=== PATIENT | female | born 1950 | race Caucasian/White ===

== ENCOUNTER 2017-06-09 09:48 | Inpatient (IN) | payer OTHER ==
[~2017-06-09] VITALS: Ht 172.7 cm; Wt 91.6 kg
--- NOTE | 2017-06-09 09:48 | NUR ---
0944--Patient was BIBA and taken to bed 06 via gurney per EMS.
[2017-06-09 09:50] VITALS: BP 103/90
--- NOTE | 2017-06-09 09:55 | NUR ---
66 YO FEMALE BIB EMS FROM HOME FOR SUDDEN ONSET OF LEEFT HIP PAIN, FELL LAST NIGHT HS HX OF PREVIOUS HIP REPLACEMENT. .DENIES N/V/D; SKIN IS PINK/WARM/DRY; AAOX4 WITH EVEN AND STEADY GAIT; LUNGS CLEAR BL; HR EVEN AND REGULAR; PT DENIES ANY FEVER, CP, SOB, OR COUGH AT THIS TIME; PATIENT STATES PAIN OF 9/10 AT THIS TIME; VSS; PATIENT POSITIONED FOR COMFORT; HOB ELEVATED; BEDRAILS UP X2; BED DOWN. ER MD MADE AWARE OF PT STATUS.
[2017-06-09] MEDS ORDERED: QUET25TA PO (09:58)
[2017-06-09] MEDS ORDERED: METH500T14 PO (09:58)
[2017-06-09] MEDS ORDERED: MELO7.5T11 PO (09:58)
[2017-06-09] MEDS ORDERED: ACET-2869 PO (09:58)
[2017-06-09] MEDS ORDERED: FLUO10CA21 PO (09:58)
[2017-06-09] MEDS ORDERED: LISI-420 PO (09:58)
[2017-06-09] MEDS ORDERED: GABA400C PO (09:58)
--- NOTE | 2017-06-09 10:03 | NUR ---
Marcial nunes in [facility] - 06/09/17 at [address] Gonzalez evaluating patient at bedside.
[2017-06-09 10:10] LABS: BASOPHILS # (AUTO) 0.3 K/uL (0.00-0.22); BASOPHILS % (AUTO) 3.1 % (0.0-2.0); EOSINOPHILS # (AUTO) 0.1 K/uL (0-0.4); EOSINOPHILS % (AUTO) 0.8 % (0.0-4.0); HEMATOCRIT 38.7 % (36-48); HEMOGLOBIN 12.8 g/dL (12.0-16.0); LYMPHOCYTES # (AUTO) 1.5 K/uL (2.5-16.5); LYMPHOCYTES % (AUTO) 14.3 % (20.5-51.1); MEAN CORPUSCULAR HEMOGLOBIN 29 pg (27-31); MEAN CORPUSCULAR HGB CONC 33 g/dL (33-37); MEAN CORPUSCULAR VOLUME 87 fL (80-94); MONOCYTES % (AUTO) 10.1 % (1.7-9.3); NEUTROPHILS # (AUTO) 7.3 K/uL (1.8-7.7); NEUTROPHILS % (AUTO) 71.7 % (42.2-75.2); PLATELET COUNT (AUTO) 399 K/uL (140-450); RED BLOOD CELL COUNT(AUTO) 4.45 MIL/uL (4.20-5.40); RED CELL DISTRIBUTION WIDTH 15.5 % (11.6-13.7); WHITE BLOOD COUNT (AUTO) 10.2 K/uL (4.8-10.8)
[2017-06-09] MEDS ORDERED: HYDROmorphone 1 MG/ML AMP IVP ONE ×2 (10:10→12:00)
[2017-06-09 10:21] LABS: ANION GAP 15.3 (8-16); CARBON DIOXIDE 25.4 mmol/L (21-32); CREATININE 0.8 mg/dL (0.6-1.3); POTASSIUM 3.7 mmol/L (3.5-5.1)
--- NOTE | 2017-06-09 10:23 | NUR ---
Patient taken to XRAY via [facility].
[2017-06-09 10:24] LABS: PROTHROMBIN TIME 10.2 secs (10.8-13.4)
[2017-06-09 10:26] LABS: ALBUMIN 3.8 g/dL (3.4-5.0); TOTAL BILIRUBIN 1.1 mg/dL (0.0-1.0)
--- NOTE | 2017-06-09 10:47 | NUR ---
Patient back from XRAY via [facility].
[2017-06-09] MEDS ORDERED: ONDANSETRON 4 MG/2 ML VIAL IVP PRN (12:05)
--- NOTE | 2017-06-09 12:33 | NUR ---
Patient will be admitted to care of Dr Mccoy. Admited to m/s. Will go to room 123b. Belongings list completed. Report to JIGNESH Ghotra.
--- NOTE | 2017-06-09 12:41 | NUR ---
Note naeemone in EDM - 06/09/17 at 1243 by JULIANA Patient discharged with v/s stable. Written and verbal after care instructions given and explained. Patient alert, oriented and verbalized understanding of instructions. Ambulatory with to car. All questions addressed prior to discharge. ID band removed. Patient advised to follow up with PMD. Rx of levaquin given. Patient educated on indication of medication including possible reaction and side effects. Opportunity to ask questions provided and answered.
[2017-06-09 13:00] VITALS: BP 117/73
[2017-06-09] MEDS: METHOCARBAMOL 500 MG TAB PO SCH ×2 (13:00→16:47)
--- NOTE | 2017-06-09 13:00 | NUR ---
RECEIVED PT FROM ER, ASSISTED BY ER NURSE PER NELDA. AWAKE. ALERT ORIENTEDX4. NO SOB NOTED. COMPLAINS ON PAIN ON LEFT HIP ON MOVEMENTS. PAIN MED DILAUDID JUST GIVEN AT ER 30 MINS AGO. POSITIVE BOWEL SOUNDS NOTED ON FOUR QUADRANTS. SKIN INTACT. SCAR NOTED ON LEFT HIP. EXTERNAL ROTATION AND SHORTENING TO LOWER LEG NOTED. PT ON BEDREST RIGHT NOW BUT HELPS WITH REPOSITIONING. SAFETY PRECAUTION IN PLACE. CALL LIGHT WITHIN REACH. PT ON FALL PRECAUTION.
[2017-06-09] MEDS: DEXT 5% /NACL 0.9% 1,000 ML IV SCH (13:17)
--- NOTE | 2017-06-09 14:02 | NUR ---
PAGED JAZLYN OLIVA, REGARDING DIET OF PT. AWAITING CALL BACK.
--- NOTE | 2017-06-09 14:04 | NUR ---
JONNATHAN FROM [facility] CALLED AND REQUESTED TO FAX PT'S FACE SHEET AND ED REPORT TO [phone]. INFORMATION SENT REQUESTED BY INSURANCE.
--- NOTE | 2017-06-09 14:55 | NUR ---
PHOTO TAKEN FOR LEFT HIP SCAR. DR. REYES CALLED BACK CLARIFIED ORDER FOR DIET. AND WITH NEW ORDER FOR RENDON CATHETER INSERTION. ORDERS MADE TORB AND CARRIED OUT.
[2017-06-09] MEDS: HYDROmorphone PFS 2 MG/ML SYR IVP PRN ×2 (15:06→21:44)
[2017-06-09 16:00] VITALS: BP 100/61
--- NOTE | 2017-06-09 17:24 | NUR ---
OFFERED PT ICE PACK FOR HER LEFT HIP. PT AGREES VERBALIZED THAT IT HELPS HER WITH HER PAIN. PAIN DOWN TO TOLERABLE LEVEL, PER PT REPORT SHE JUST FEELS PAIN ON HER LEFT HIP WHEN MOVING/ REPOSITIONING. PT IN BED. COMFORTABLE AT THIS TIME.
[2017-06-09] MEDS: HYDROmorphone 1 MG/ML AMP IVP PRN (18:31)
--- NOTE | 2017-06-09 19:41 | NUR ---
PT KEPT CLEAN, DRY AND COMFORTABLE, NEEDS ATTENDED. ENDORSED TO NEXT SHIFT ON STABLE CONDITION FOR CONTINUITY OF CARE. DENIES ANY PAIN OR DISCOMFORT AT THIS TIME. NO SOB NOTED.
--- NOTE | 2017-06-09 19:42 | NUR ---
PATIENT IS CURRENTLY AWAKE ALERT ORIENTED,PATIENT DENIES PAIN, IVF INFUSING WELL, RENDON CATHETER IN PLACED DRAINING TO GRAVITY YELLOW COLOR URINE NOTED.PATIENT CONTINUES TO BE NPO FOR NOW AND PATIENT VERBALIZES UNDERSTANDING.FALL AND SAFETY PRECAUTIONS IMPLEMENTED WILL CONTINUE TO MONITOR.
--- NOTE | 2017-06-09 19:50 | NUR ---
Patient's Plan of Care was discussed and reviewed with ENVIRONMENTAL MONITORING SPECIALIST: RJ RAMIREZ.
[2017-06-09 20:00] VITALS: BP 105/63
[2017-06-09] MEDS: HYDROcodone/APAP 5/325 MG 1 TAB TAB PO PRN (20:26)
--- NOTE | 2017-06-09 22:30 | NUR ---
PATIENT IS CURRENTLY RESTING IN BED AWAKE NEEDS MET WILL CONTINUE TO MONITOR.
[2017-06-10] VITALS: BP 94/55
--- NOTE | 2017-06-10 00:58 | NUR ---
PATIENT IS CURRENTLY RESTING IN BED IVF INFUSING WELL NO COMPLAINS OF PAIN AT THIS TIME WILL CONTINUE TO MONITOR.
[2017-06-10] MEDS: DEXT 5% /NACL 0.9% 1,000 ML IV SCH ×3 (01:18→18:05)
--- NOTE | 2017-06-10 02:22 | NUR ---
PATIENT RESTING IN BED NEEDS MET WILL CONTINUE TO MONITOR.
[2017-06-10] MEDS: HYDROmorphone 1 MG/ML AMP IVP PRN ×3 (03:00→20:10)
--- NOTE | 2017-06-10 04:30 | NUR ---
PATIENT AWAKE WATCHING TV IVF INFUSING WELL WILL CONTINUE TO MONITOR.
[2017-06-10] MEDS: HYDROcodone/APAP 5/325 MG 1 TAB TAB PO PRN ×2 (05:59→16:25)
[2017-06-10 06:24] LABS: BASOPHILS # (AUTO) 0.1 K/uL (0.00-0.22); BASOPHILS % (AUTO) 0.8 % (0.0-2.0); EOSINOPHILS # (AUTO) 0.2 K/uL (0-0.4); EOSINOPHILS % (AUTO) 3.2 % (0.0-4.0); HEMATOCRIT 32.8 % (36-48); HEMOGLOBIN 10.5 g/dL (12.0-16.0); LYMPHOCYTES % (AUTO) 30.5 % (20.5-51.1); MEAN CORPUSCULAR HEMOGLOBIN 28 pg (27-31); MEAN CORPUSCULAR HGB CONC 32 g/dL (33-37); MEAN CORPUSCULAR VOLUME 89 fL (80-94); MONOCYTES # (AUTO) 0.7 K/uL (0.8-1.0); NEUTROPHILS # (AUTO) 3.5 K/uL (1.8-7.7); NEUTROPHILS % (AUTO) 54.5 % (42.2-75.2); PLATELET COUNT (AUTO) 344 K/uL (140-450); RED BLOOD CELL COUNT(AUTO) 3.71 MIL/uL (4.20-5.40); RED CELL DISTRIBUTION WIDTH 15.1 % (11.6-13.7); WHITE BLOOD COUNT (AUTO) 6.5 K/uL (4.8-10.8)
[2017-06-10 06:56] LABS: ALBUMIN 2.7 g/dL (3.4-5.0); ANION GAP 13.7 (8-16); CARBON DIOXIDE 23.8 mmol/L (21-32); CREATININE 0.5 mg/dL (0.6-1.3); POTASSIUM 3.5 mmol/L (3.5-5.1); TOTAL BILIRUBIN 0.5 mg/dL (0.0-1.0)
--- NOTE | 2017-06-10 07:05 | NUR ---
PATIENT STABLE RESTING IN BED AT THIS TIME.NEEDS MET WILL CONTINUE TO MONITOR.
--- NOTE | 2017-06-10 07:09 | NUR ---
I PAGED MD Douglas HYDE TO INFORM THE DOCTOR OF CONSULT.
--- NOTE | 2017-06-10 07:43 | NUR ---
REPORT ENDORSED TO JIGNESH SANCHEZ GAVE REPORT AT BEDSIDE AND ENDORSED THAT PATIENT IS DUE FOR PAIN MEDICATION AND INFORMED HER TO FOLLOW UP WITH Douglas HYDE CONSULT SHE IS AWARE THAT I PAGED Douglas HYDE AND HE HASN'T CALLED ME BACK YET WANT TO MAKE SURE HE IS AWARE OF THE CONSULT.JIGNESH SANCHEZ WILL RESUME CARE.
--- NOTE | 2017-06-10 07:50 | NUR ---
RECEIVED PATIENT FROM OFF GOING RN. PATIENT IS AWAKE ALERT WITH C/O PAIN TO LEFT HIP. PATIENT ASSESSED AT TIS TIME AND WILL MEDICATE
[2017-06-10 08:03] VITALS: BP 141/78
[2017-06-10] MEDS ORDERED: NON-FORMULARY ITEM (Meloxicam* (Mobic*) 7.5 MG) PO SCH (09:00)
[2017-06-10] MEDS: CELECOXIB 100 MG CAP PO SCH (10:26)
[2017-06-10] MEDS: LISINOPRIL 20 MG TAB PO SCH (10:27)
[2017-06-10] MEDS: QUEtiapine FUMARATE 25 MG TAB PO SCH (10:27)
[2017-06-10] MEDS: LORazepam 2 MG/ML VIAL IVP PRN ×2 (10:28→20:20)
[2017-06-10] MEDS: FLUoxetine 10 MG CAP PO SCH (10:29)
[2017-06-10] MEDS: METHOCARBAMOL 500 MG TAB PO SCH ×3 (10:30→18:38)
--- NOTE | 2017-06-10 11:23 | NUR ---
[facility] REFERRAL RECEIVED ON 06/09/17 FOR "NOT APPLICABLE." REFERRAL REASON DOES NOT MEET HIGH NUTRITION RISK CRITERIA PER HOSPITAL POLICY. PATIENT HAS BEEN SCREENED AND CATEGORIZED MODERATE NUTRITION RISK. PATIENT WILL BE SEEN WITHIN 3-5 DAYS OF ADMISSION. 06/12/17 - 06/14/[address]
--- NOTE | 2017-06-10 12:35 | NUR ---
PATIENT SEEN BY DR Douglas HYED AND IS FOR OR TOMORROW
[2017-06-10 12:49] VITALS: BP 112/69
--- NOTE | 2017-06-10 13:44 | NUR ---
PATIENT VISITING WITH DAUGHTER AND MADE HER AWARE OF OR TOMORROW. PATIENT CONTINUES TO HAVE OCCASIONAL EMOTIONAL EPISODES. NO ACUTE DISTRESS NOTED
--- NOTE | 2017-06-10 15:07 | NUR ---
CM NOTE INITIAL REVIEW FAXED TO [facility] / FAX# [phone]
--- NOTE | 2017-06-10 19:46 | NUR ---
PATIENT ENDORSED TO TERI IN COMING RN. PATIENT REMAINS AWAKE ALERT AND ORIENTED. RESTING QUIETLY WATCHING TV.
--- NOTE | 2017-06-10 19:47 | NUR ---
RECEIVED REPORT FROM DAY NURSE, PT AAOX4, PT IS ON RA, IV TO RIGHT AC 20G PATENT AND INTACT, SKIN IS IN TACT, RESPIRATIONS ARE EVEN AND UNLABORED, BOWEL SOUNDS PRESENT, INITAL ASSESSMENT COMPLETED, PLAN OF CARE DISCUSSED WITH PT, PT VERBALIZED UNDERSTANDING. ALL SAFETY PRECAUTIONS MET, CALL LIGHT WITHIN REACH, WILL CONTINUE TO MONITOR.
[2017-06-10 20:00] VITALS: BP 107/73
--- NOTE | 2017-06-11 | NUR ---
PTS VITAL SIGNS STABLE, NO S/S OF DISTRESS NOTED. PT RESTING COMFORTABLY IN BED. CALL LIGHT WITHIN REACH
[2017-06-11] MEDS: DEXT 5% /NACL 0.9% 1,000 ML IV SCH ×3 (02:06→23:30)
[2017-06-11] MEDS: HYDROmorphone PFS 2 MG/ML SYR IVP PRN ×3 (05:01→23:19)
--- NOTE | 2017-06-11 07:24 | NUR ---
ENDORSED PLAN OF CARE TO AM NURSE, PT IN STABLE CONDITION. NO S/S OF DISTRESS NOTED. CALL LIGHT IS WITHIN REACH
[2017-06-11 07:25] LABS: BASOPHILS # (AUTO) 0.1 K/uL (0.00-0.22); BASOPHILS % (AUTO) 1.2 % (0.0-2.0); EOSINOPHILS # (AUTO) 0.2 K/uL (0-0.4); EOSINOPHILS % (AUTO) 3.4 % (0.0-4.0); HEMATOCRIT 33.4 % (36-48); HEMOGLOBIN 10.8 g/dL (12.0-16.0); LYMPHOCYTES # (AUTO) 1.7 K/uL (2.5-16.5); LYMPHOCYTES % (AUTO) 29.5 % (20.5-51.1); MEAN CORPUSCULAR HEMOGLOBIN 29 pg (27-31); MEAN CORPUSCULAR HGB CONC 33 g/dL (33-37); MEAN CORPUSCULAR VOLUME 89 fL (80-94); MONOCYTES # (AUTO) 0.5 K/uL (0.8-1.0); MONOCYTES % (AUTO) 9.2 % (1.7-9.3); NEUTROPHILS # (AUTO) 3.2 K/uL (1.8-7.7); NEUTROPHILS % (AUTO) 56.7 % (42.2-75.2); PLATELET COUNT (AUTO) 357 K/uL (140-450); RED BLOOD CELL COUNT(AUTO) 3.76 MIL/uL (4.20-5.40); RED CELL DISTRIBUTION WIDTH 14.8 % (11.6-13.7); WHITE BLOOD COUNT (AUTO) 5.7 K/uL (4.8-10.8)
--- NOTE | 2017-06-11 07:25 | NUR ---
RECEIVED HANDOFF REPORT FROM PM RN. PATIENT A&OX4. IV SITE PATENT AND INTACT. PATIENT DENIES PAIN. NO SIGNS OR SYMPTOMS OF ACUTE DISTRESS NOTED. CALL LIGHT WITHIN REACH. WILL CONTINUE TO MONITOR.
[2017-06-11 07:31] LABS: ANION GAP 11.2 (8-16); CARBON DIOXIDE 26.3 mmol/L (21-32); CREATININE 0.6 mg/dL (0.6-1.3); POTASSIUM 3.5 mmol/L (3.5-5.1)
[2017-06-11 08:00] VITALS: BP 103/41
--- NOTE | 2017-06-11 08:15 | NUR ---
PATIENT OFF UNIT TO SURGERY.
[2017-06-11] MEDS: CELECOXIB 100 MG CAP PO SCH (09:00)
[2017-06-11] MEDS: FLUoxetine 10 MG CAP PO SCH (09:00)
[2017-06-11] MEDS: METHOCARBAMOL 500 MG TAB PO SCH ×3 (09:00→16:15)
[2017-06-11] MEDS: QUEtiapine FUMARATE 25 MG TAB PO SCH (09:00)
[2017-06-11] MEDS: LISINOPRIL 20 MG TAB PO SCH (09:00)
[2017-06-11] MEDS ORDERED: PROPOFOL 200 MG/20 ML VIAL IV ONE (09:14)
[2017-06-11] MEDS ORDERED: LABETALOL 100 MG/20 ML VIAL IVP ONE (09:14)
[2017-06-11] MEDS ORDERED: ePHEDrine 50 MG/ML VIAL IV ONE (09:14)
[2017-06-11] MEDS ORDERED: SEVOFLURANE 250 ML BTL INH ONE (09:14)
[2017-06-11] MEDS ORDERED: MIDAZOLAM 2 MG/2 ML VIAL ONE (09:38)
[2017-06-11] MEDS ORDERED: KETAMINE 500 MG/5 ML VIAL ONE (09:38)
[2017-06-11] MEDS ORDERED: fentaNYL 0.05 MG/ML VIAL ONE (09:39)
[2017-06-11] MEDS ORDERED: ONDANSETRON 4 MG/2 ML VIAL IVP PRN (10:00)
[2017-06-11] MEDS ORDERED: ceFAZolin 1,000 MG VIAL ONE (10:24)
[2017-06-11] MEDS ORDERED: BACITRACIN 50000 UNITS/1 VIAL ONE (10:42)
[2017-06-11] MEDS ORDERED: HYDROmorphone PFS 2 MG/ML SYR ONE ×2 (11:19→13:59)
[2017-06-11] MEDS: HYDROmorphone 1 MG/ML AMP IVP PRN ×2 (13:50→14:00)
[2017-06-11 14:25] VITALS: BP 121/67
--- NOTE | 2017-06-11 14:25 | NUR ---
PATIENT BACK ON UNIT FROM OR. ORIF DONE, NO DRAIN NOTED. DRESSING ON LEFT HIP DRY AND INTACT. PATIENT IN STABLE CONDITION, TALKING WITH FAMILY ON PHONE. PATIENT DENIES PAIN. NO SIGNS OR SYMPTOMS OF ACUTE DISTRESS NOTED. CALL LIGHT WITHIN REACH. WILL CONTINUE TO MONITOR.
--- NOTE | 2017-06-11 14:32 | NUR ---
CONCURRENT REVIEW FAXED TO [facility] [phone] PHONE [phone], ROBIN REF NUMBER [id number]
--- NOTE | 2017-06-11 19:33 | NUR ---
ENDORSED PLAN OF CARE TO PM RN. PATIENT IN STABLE CONDITION. NO SIGNS OR SYMPTOMS OF ACUTE DISTRESS NOTED.
--- NOTE | 2017-06-11 19:34 | NUR ---
RECEIVED PATIENT REPORT AT BEDSIDE FROM MORNING NURSE. PATIENT IS AWAKE, ALERT AND ORIENTED. NO SIGNS AND SYMPTOMS OF DISTRESS NOTED. PATIENT'S FAMILY IS AT BEDSIDE. BED IN LOWEST POSITION, SIDE RAILS UP AND CALL LIGHT WITHIN REACH. WILL CONTINUE TO MONITOR.
[2017-06-12] VITALS: BP 131/83
[2017-06-12] MEDS: HYDROmorphone PFS 2 MG/ML SYR IVP PRN ×2 (06:16→11:05)
[2017-06-12 06:28] LABS: BASOPHILS # (AUTO) 0.1 K/uL (0.00-0.22); BASOPHILS % (AUTO) 0.9 % (0.0-2.0); EOSINOPHILS # (AUTO) 0.1 K/uL (0-0.4); EOSINOPHILS % (AUTO) 0.8 % (0.0-4.0); HEMATOCRIT 31.9 % (36-48); HEMOGLOBIN 10.4 g/dL (12.0-16.0); LYMPHOCYTES # (AUTO) 1.8 K/uL (2.5-16.5); LYMPHOCYTES % (AUTO) 16.5 % (20.5-51.1); MEAN CORPUSCULAR HEMOGLOBIN 29 pg (27-31); MEAN CORPUSCULAR HGB CONC 33 g/dL (33-37); MEAN CORPUSCULAR VOLUME 87 fL (80-94); MONOCYTES # (AUTO) 0.9 K/uL (0.8-1.0); MONOCYTES % (AUTO) 8.5 % (1.7-9.3); NEUTROPHILS # (AUTO) 8.3 K/uL (1.8-7.7); NEUTROPHILS % (AUTO) 73.3 % (42.2-75.2); PLATELET COUNT (AUTO) 399 K/uL (140-450); RED BLOOD CELL COUNT(AUTO) 3.66 MIL/uL (4.20-5.40); RED CELL DISTRIBUTION WIDTH 15.1 % (11.6-13.7); WHITE BLOOD COUNT (AUTO) 11.2 K/uL (4.8-10.8)
[2017-06-12 06:45] LABS: ANION GAP 13.2 (8-16); CARBON DIOXIDE 23.3 mmol/L (21-32); CREATININE 0.5 mg/dL (0.6-1.3); POTASSIUM 3.5 mmol/L (3.5-5.1)
--- NOTE | 2017-06-12 07:22 | NUR ---
PATIENT REPORT GIVEN TO MORNING NURSE AT BEDSIDE. PATIENT IN STABLE CONDITION
--- NOTE | 2017-06-12 08:00 | NUR ---
Patient's Plan of Care was discussed and reviewed with COMPUTER OPERATIONS TECHNICIAN: NATALIA CHAVEZ
--- NOTE | 2017-06-12 10:25 | NUR ---
P.T. NOTE ORDERED HIP ABDUCTION BRACE, THIS P.T. SPOKE WITH PATIENT AND SAID SHE HAS A HIP BRACE AT HOME IN [facility], HAS HAD IT FOR A MONTH BUT HASN'T BEEN IN COMPLIANCE WITH ITS USE. SHE SAID HER CELLPHONE ISN'T WITH HER AND SHE DOESN'T KNOW HER DAUGHTER'S CELLPHONE NUMBER. ON FILE HER HOME PHONE NUMBER IS RECORDED, WHICH PATIENT SAID "MY DAUGHTER MIGHT BE THERE. BUT SHE DOESN'T HAVE A CAR SO SHE CAN'T BRING IT IN TODAY." THIS P.T. LEFT VOICEMAIL TO SAID NUMBER REQUESTING FOR DAUGHTER TO BRING IN HIP BRACE PRIOR TO OUT OF BED ACTIVITIES. EXPLAINED RATIONALE FOR NEED FOR USE OF HIP BRACE FOR P.T.E GRICELDA FOR MOBILITY, PT AWARE SHE SAID "YES I NEED TO USE IT WHEN I USE THE TOILET AND WHEN I'M WALKING FOR THE REST OF MY LIFE." Addendum: 06/12/17 at 1030 by Lakeisha Waite PT WILL AWAIT FOR HIP BRACE BEFORE OUT OF BED ACTIVITY/ P.T. ROWENA, NURSE MADE AWARE ALSO OF PT'S REQUEST FOR PAIN MEDS, STATES SHE IS AT A 7/10 LT HIP PAIN. PVEX1
[2017-06-12] MEDS: CELECOXIB 100 MG CAP PO SCH (10:51)
[2017-06-12] MEDS: FLUoxetine 10 MG CAP PO SCH (10:51)
[2017-06-12] MEDS: DEXT 5% /NACL 0.9% 1,000 ML IV SCH ×3 (10:52→22:02)
[2017-06-12] MEDS: METHOCARBAMOL 500 MG TAB PO SCH ×3 (10:55→17:49)
[2017-06-12] MEDS: QUEtiapine FUMARATE 25 MG TAB PO SCH (10:56)
[2017-06-12 10:59] VITALS: BP 134/85
[2017-06-12] MEDS: LISINOPRIL 20 MG TAB PO SCH (11:09)
--- NOTE | 2017-06-12 13:51 | NUR ---
FAXED CONCURRENT REVIEW TO [facility] [phone] PHONE ROBIN [phone] IRENA [phone]
--- NOTE | 2017-06-12 15:07 | NUR ---
CALLED IRENA AT [facility]. SHE SAID THAT SINCE THIS PATIENT IS OUT OF AREA, REVIEW NEED TO GO TO GRACE [phone]. I CALLED GRACE AND SHE ASKED FOR THE REVIEW TO TO SENT TO HER AT [phone]. FAXED INITIAL AND CONCURRENT REVIEW TO HER ALONG WITH THE ADMIT ORDER. SHE SAID FOR DISCHARGE NEEDS, THE IPA NEEDS TO BE CALLED , LIKE SNF, HH, ETC. IPA IS [facility], PHONE [phone].
[2017-06-12] MEDS: LORazepam 2 MG/ML VIAL IVP PRN (18:14)
--- NOTE | 2017-06-12 19:20 | NUR ---
GAVE REPORT TO PM NURSE. PT IN HER BED RESTING WITH HER EYES OPEN. PT STABLE
--- NOTE | 2017-06-12 19:30 | NUR ---
ASSUMED CARE OF PATIENT, ASLEEP EASILY AROUSABLE. NO COMPLAINS. CALL LIGHT WITHIN REACH.
--- NOTE | 2017-06-12 21:30 | NUR ---
SLEEPING, AROUSABLE. NO COMPLAINS. CARE BOARD UPDATED. REPOSITIONED. RENDON CATHETER DRAINING WELL. DRESSING DRY AND INTACT. ABDUCTOR PILLOW NOTED. CALL LIGHT WITHIN REACH.
[2017-06-13] VITALS (7 sets, daily range): BP systolic 80–113; BP diastolic 50–74
--- NOTE | 2017-06-13 00:38 | NUR ---
AWAKE. NO COMPLAINS. VITAL SIGNS STABLE. CALL LIGHT WITHIN REACH.
[2017-06-13] MEDS: HYDROcodone/APAP 5/325 MG 1 TAB TAB PO PRN ×3 (05:27→21:22)
[2017-06-13 05:57] LABS: BASOPHILS % (AUTO) 0.4 % (0.0-2.0); EOSINOPHILS # (AUTO) 0.1 K/uL (0-0.4); EOSINOPHILS % (AUTO) 1.4 % (0.0-4.0); HEMATOCRIT 29.7 % (36-48); HEMOGLOBIN 9.7 g/dL (12.0-16.0); LYMPHOCYTES # (AUTO) 1.9 K/uL (2.5-16.5); LYMPHOCYTES % (AUTO) 20.4 % (20.5-51.1); MEAN CORPUSCULAR HEMOGLOBIN 29 pg (27-31); MEAN CORPUSCULAR HGB CONC 33 g/dL (33-37); MEAN CORPUSCULAR VOLUME 88 fL (80-94); MONOCYTES # (AUTO) 1.1 K/uL (0.8-1.0); MONOCYTES % (AUTO) 11.9 % (1.7-9.3); NEUTROPHILS # (AUTO) 6.3 K/uL (1.8-7.7); NEUTROPHILS % (AUTO) 65.9 % (42.2-75.2); PLATELET COUNT (AUTO) 396 K/uL (140-450); RED BLOOD CELL COUNT(AUTO) 3.37 MIL/uL (4.20-5.40); RED CELL DISTRIBUTION WIDTH 15.3 % (11.6-13.7); WHITE BLOOD COUNT (AUTO) 9.4 K/uL (4.8-10.8)
[2017-06-13 07:04] LABS: ANION GAP 12.7 (8-16); CARBON DIOXIDE 24.9 mmol/L (21-32); CREATININE 0.6 mg/dL (0.6-1.3); POTASSIUM 3.6 mmol/L (3.5-5.1)
--- NOTE | 2017-06-13 07:18 | NUR ---
ENDORSED CARE AT BEDSIDE WITH RUDOLPH EGAN, PATIENT IN STABLE CONDITION.
--- NOTE | 2017-06-13 07:20 | NUR ---
RECEIVED PT REPORT AT BEDSIDE FROM NIGHT NURSE. PATIENT IS AAOX4 AND DENIES PAIN. SCD'S IN PLACE. IV NOTED ON THE R FA WITH IVF'S INFUSING, IV IS PINK AND HURTING PT. WILL DISCONTINUE IV. PT ON RA. PATIENT WAS EXPLAINED POC FOR TODAY AND VERBALIZED UNDERSTANDING. THE BED IS IN LOW POSITION, CALL LIGHT WITHIN REACH, CONTACT PRECAUTIONS IN PLACE. WILL CONTINUE TO MONITOR.
[2017-06-13] MEDS: CELECOXIB 100 MG CAP PO SCH (08:58)
[2017-06-13] MEDS: FLUoxetine 10 MG CAP PO SCH (08:58)
[2017-06-13] MEDS: QUEtiapine FUMARATE 25 MG TAB PO SCH (08:59)
[2017-06-13] MEDS: METHOCARBAMOL 500 MG TAB PO SCH ×3 (08:59→16:41)
[2017-06-13] MEDS: LISINOPRIL 20 MG TAB PO SCH (08:59)
[2017-06-13] MEDS: LORazepam 2 MG/ML VIAL IVP PRN ×2 (08:59→22:38)
--- NOTE | 2017-06-13 09:00 | NUR ---
R FA IV WAS DC WITH CANNULA INTACT. NEW IV ON THE L FA WITH IVF'S INFUSING WELL. ADMINISTER SCHEDULED MEDICATIONS. PATIENT TOLERATED WELL. PT C/O ANXIETY AND ADMINISTERED ATIVAN IVP.
--- NOTE | 2017-06-13 10:43 | NUR ---
P.T. NOTES PER PATIENT, HER DAUGHTER HASN'T CALLED BACK SINCE YESTERDAY, HER SON IN LAW DIDN'T VISIT HER YESTERDAY TOO. SO SHE IS UNCERTAIN IF HER DAUGHTER CAN BRING HIP BRACE TODAY. D/T NATURE OF RECURRENT HIP DISLOCATION, UNABLE TO PERFORM P.T. EVAL UNTIL HIP BRACE IS AVAILABLE. PT MADE AWARE. THIS P.T. WILL CALL HOME PHONE NUMBER AGAIN TODAY TO TRY AND GET A HOLD OF THE DAUGHTER FOR FOLLOW UP. PVEX1
--- NOTE | 2017-06-13 11:00 | NUR ---
PATIENT HAD LOOSE BM AND WAS GIVEN PERINEAL CARE. ALL NEEDS MET AT THIS TIME.
--- NOTE | 2017-06-13 12:40 | NUR ---
ADMINISTERED SCHEDULED MEDICATIONS AND NORCO 5/325 MG PO FOR 6/10 PAIN. WILL REASSESS IN ONE HR. ALL NEEDS MET AT THIS TIME.
--- NOTE | 2017-06-13 13:40 | NUR ---
PT IS SLEEPING AND SHOWS NO S/S OF ACUTE DISTRESS ON ROOM AIR.
--- NOTE | 2017-06-13 13:49 | NUR ---
CM NOTE CONCURRENT REVIEW FAXED TO [facility] / FAX# [phone], ATTN: GRACE #[phone]
--- NOTE | 2017-06-13 15:30 | NUR ---
PT IS WATCHING TV AND RESTING COMFORTABLY PT DENIES PAIN.
[2017-06-13] MEDS: DEXT 5% /NACL 0.9% 1,000 ML IV SCH (15:32)
--- NOTE | 2017-06-13 15:45 | NUR ---
PT STATED SHE HAD ANOTHER BM. PATIENT HAS HAD 2 WATERY STOOLS SINCE THIS AM. PAGED DR REYES. AWAITING CALL BACK.
--- NOTE | 2017-06-13 16:00 | NUR ---
PT BP IS 89/50 ON THE RIGHT ARM BP IS LOW AND COULD NOT GIVE PAIN MEDICATION. PT HAS DECREASED BP; PT AWARE CANNOT GIVE PAIN MED AT THIS TIME. PT SHOWS NO S/S OF ACUTE DISTRESS ON ROOM AIR. PT IS ASYMPTOMATIC. WILL REASSESS IN ONE HR. DR REYES WAS PAGED AWAITING CALL BACK.
--- NOTE | 2017-06-13 17:00 | NUR ---
PT BP IS 96/52 ON THE LEFT ARM. PT HAS DECREASED BP; PT AWARE CANNOT GIVE PAIN MED AT THIS TIME. WILL CONTINUE TO MONITOR. WILL REASSESS IN 30 MIN.
--- NOTE | 2017-06-13 17:05 | NUR ---
PAGED DR REYES TO NOTIFY DR OF WATERY STOOLS AND LOW BP.
--- NOTE | 2017-06-13 17:10 | NUR ---
DR REYES CALLED BACK AND ORDERED D5 1/2 NS @ 100 ML/HR, STOOL CX, 2 C DIFF CX, AND FLORASTOR [address] ORDERS.
--- NOTE | 2017-06-13 17:15 | NUR ---
SPOKE WITH PHARMACY REGARDING PT ORDERS FOR FLORASTOR 250 MG BID PO. PHARMACY EQUIVALENT IS LACTOBACILLUS. WILL PLACE ORDERS.
[2017-06-13] MEDS: DEXT 5% / NACL 0.45% 1,000 ML IV SCH (17:54)
--- NOTE | 2017-06-13 18:30 | NUR ---
COLLECTED STOOL CX SENT TO LAB.
--- NOTE | 2017-06-13 19:00 | NUR ---
COLLECTED C DIFF CX. SENT TO LAB.
--- NOTE | 2017-06-13 19:20 | NUR ---
GAVE REPORT TO NIGHT NURSE. PT AAOX4 AND SHOWS NO S/S OF ACUTE DISTRESS ON ROOM AIR. PT ENDORSED IN STABLE CONDITION.
--- NOTE | 2017-06-13 19:25 | NUR ---
RECEIVED REPORT AT PT BEDSIDE FROM DAY SHIFT RN. PT IN STABLE CONDITION, BEDBOUND FOR NOW D/T LEFT HIP DISLOCATION AND S/P ORIF. PT IS AAOX4, ON ROOM AIR WITH NO SIGNS OF RESPIRATORY DISTRESS. PT HAS A 18 GAUGE IV ON HER LEFT HAND INFUSING D5 1/2NS@100ML/HR. SURGICAL INCISION COVERED WITH DRESSING WITH MINIMUM DRAINAGE. NO SIGNS OF DISTRESS NOTED. RENDON CATHETER IN PLACE HOLDING YELLOW URINE. PT DENIES PAIN AT THIS TIME. DISCUSSED PLAN OF CARE WITH PT, PT VERBALIZED UNDERSTANDING. BED IN LOW POSITION, CALL LIGHT WITHIN REACH. WILL CONTINUE TO MONITOR.
--- NOTE | 2017-06-13 20:10 | NUR ---
CLEANED PT WITH THE HELP OF CARDIAC RN. PT HAD WATERY AND FOUL SMELLING BM. PT ABLE TO ASSIST IN TURNING. PT IN STABLE CONDITION, NO SIGNS OF DISTRESS NOTED. BED IN LOW POSITION, CALL LIGHT WITHIN REACH. WILL CONTINUE TO MONITOR.
[2017-06-13] MEDS: LACTOBACILLUS RHAMNOSUS GG 1 EACH CAP PO SCH (21:22)
--- NOTE | 2017-06-13 21:25 | NUR ---
ADMINISTERED SCHEDULED MED AND PAIN MED FOR PT C/O 02/23 PAIN. PT TOLERATED WELL. CHECKED BP BEFORE GIVING PAIN MED, BP 120/70 HEART RATE 94. NO SIGNS OF DISTRESS NOTED. PT IN STABLE CONDITION. BED IN LOW POSITION, CALL LIGHT WITHIN REACH. WILL CONTINUE TO MONITOR.
--- NOTE | 2017-06-13 23:15 | NUR ---
PATIENT'S DAUGHTER DROPPED OFF HIP BRACE FOR PT TO START PT TOMORROW. DAUGHTER WENT IN TO SEE PT, AND LEFT RIGHT AWAY. PT STABLE, NO SIGNS OF DISTRESS NOTED. STATED SHE IS FEELING BETTER AND IS GOING TO SLEEP. BED IN LOW POSITION, CALL LIGHT WITHIN REACH. WILL CONTINUE TO MONITOR.
[2017-06-14] VITALS: BP 125/68
--- NOTE | 2017-06-14 01:20 | NUR ---
PT SLEEPING, IN STABLE CONDITION, VITAL SIGNS ARE STABLE. NO SIGNS OF DISTRESS NOTED. BED IN LOW POSITION, CALL LIGHT WITHIN REACH. WILL CONTINUE TO MONITOR.
[2017-06-14] MEDS: HYDROcodone/APAP 5/325 MG 1 TAB TAB PO PRN ×5 (03:24→21:37)
--- NOTE | 2017-06-14 03:25 | NUR ---
ADMINISTERED NORCO PER PT REQUEST FOR PAIN AT 6/10 AT LEFT HIP. PT TOLERATED WELL. PT IN STABLE CONDITION. NO SIGNS OF DISTRESS NOTED. BED IN LOW POSITION, CALL LIGHT WITHIN REACH. WILL CONTINUE TO MONITOR.
[2017-06-14] MEDS: DEXT 5% / NACL 0.45% 1,000 ML IV SCH ×3 (03:43→23:34)
--- NOTE | 2017-06-14 04:56 | NUR ---
PT TOLERATED DRESSING CHANGE WELL. OLD DRESSING HAD MODERATE AMOUNT OF SEROSANGUINEOUS DRAINAGE. INCISION WELL APPROXIMATED WITH FILI. NO SIGNS OF DISTRESS NOTED. BED IN LOW POSITION, CALL LIGHT WITHIN REACH. WILL CONTINUE TO MONITOR.
--- NOTE | 2017-06-14 05:32 | NUR ---
PT SLEEPING. STABLE, NO SIGNS OF DISTRESS NOTED. BED IN LOW POSITION, CALL LIGHT WITHIN REACH. WILL CONTINUE TO MONITOR.
[2017-06-14 06:23] LABS: BASOPHILS % (AUTO) 0.5 % (0.0-2.0); EOSINOPHILS # (AUTO) 0.4 K/uL (0-0.4); EOSINOPHILS % (AUTO) 4.6 % (0.0-4.0); HEMATOCRIT 27.8 % (36-48); LYMPHOCYTES # (AUTO) 1.8 K/uL (2.5-16.5); LYMPHOCYTES % (AUTO) 23.3 % (20.5-51.1); MEAN CORPUSCULAR HEMOGLOBIN 29 pg (27-31); MEAN CORPUSCULAR HGB CONC 33 g/dL (33-37); MEAN CORPUSCULAR VOLUME 88 fL (80-94); MONOCYTES # (AUTO) 0.7 K/uL (0.8-1.0); MONOCYTES % (AUTO) 9.4 % (1.7-9.3); NEUTROPHILS # (AUTO) 4.7 K/uL (1.8-7.7); NEUTROPHILS % (AUTO) 62.2 % (42.2-75.2); PLATELET COUNT (AUTO) 389 K/uL (140-450); RED BLOOD CELL COUNT(AUTO) 3.16 MIL/uL (4.20-5.40); RED CELL DISTRIBUTION WIDTH 14.9 % (11.6-13.7); WHITE BLOOD COUNT (AUTO) 7.6 K/uL (4.8-10.8)
[2017-06-14 06:34] LABS: ANION GAP 9.7 (8-16); CARBON DIOXIDE 24.5 mmol/L (21-32); CREATININE 0.5 mg/dL (0.6-1.3); POTASSIUM 3.2 mmol/L (3.5-5.1)
--- NOTE | 2017-06-14 07:24 | NUR ---
RECEIVED PT IN BED. AWAKE. ALERT ORIENTEDX4. NO SOB NOTED. DENIES ANY PAIN OR DISCOMFORT AT THIS TIME. RENDON CATHETER IN PLACE. AND INTACT, DRAINING YELLOW URINE. PT ON BEDREST. SAFETY PRECAUTION IN PLACE. CALL LIGHT WITHIN REACH.
--- NOTE | 2017-06-14 07:38 | NUR ---
ENDORSED PT TO DAY SHIFT RN FOR CONTINUITY OF CARE. PT IN STABLE CONDITION.
[2017-06-14 08:00] VITALS: BP 107/63
[2017-06-14] MEDS: LACTOBACILLUS RHAMNOSUS GG 1 EACH CAP PO SCH ×2 (08:39→21:37)
[2017-06-14] MEDS: CELECOXIB 100 MG CAP PO SCH (08:39)
[2017-06-14] MEDS: FLUoxetine 10 MG CAP PO SCH (08:39)
[2017-06-14] MEDS: QUEtiapine FUMARATE 25 MG TAB PO SCH (08:39)
[2017-06-14] MEDS: METHOCARBAMOL 500 MG TAB PO SCH ×3 (08:40→16:45)
[2017-06-14] MEDS: LISINOPRIL 20 MG TAB PO SCH (08:47)
[2017-06-14] MEDS ORDERED: POTASSIUM CHLORIDE 10 MEQ TABER PO SCH (09:30)
--- NOTE | 2017-06-14 09:57 | NUR ---
PHYSICAL THERAPY CAME TO SEE PT.
--- NOTE | 2017-06-14 10:11 | NUR ---
FAXED CONCURRENT REVIEW TO [facility] [phone] PHONE GRACE [phone]. I SPOKE WITH GRACE AND THE PHONE NUMBER SHE GAVE ME TO [facility] DIDN'T GO THROUGH. SHE GAVE ME ANOTHER PHONE NUMBER [phone]. I CALLED AND SPOKE WITH LINNEA . SHE SAID FOR SNF TO CALL BERHANE CAMARENA FROM [facility], [facility], [address] [place]. I CALLED BREHANE CAMARENA AT [phone] AND SHE SAID FOR SNF [facility], [facility], OR [facility] AT [phone] OR [facility] [phone]. SHE SAID NO AUTH NEEDED, JUST LET HER KNOW WHICH FACILITY SHE GOES TO. IF SNF INSISTS ON AUTH, USE [id number]. SHE SAID AUTH FROM TRANSPORT THROUGH [facility]. THE TRACKING NUMBER FOR [facility] IS [id number]. WEEKEND AND MAIN LINE TO [facility] IS [phone]. I CALLED GRACE FROM [facility] AND SHE WILL CALL ME BACK WITH AUTH NUMBER. Addendum: 06/14/17 at 1021 by Belgica Reagan CM IN ADDITION, FAX INFORMATION THAT IS FAXED TO THE SNF TO BERHANE CAMARENA FROM [facility] TO [phone] Addendum: 06/14/17 at 1451 by Belgica Reagan CM ERROR ABOVE SNF IS [facility], NOT [facility]
--- NOTE | 2017-06-14 11:04 | NUR ---
DR. Manuel HYDE CAME TO SEE. PT. PHYSICAL THERAPIST AT BEDSIDE. POTASSIUM PO JUST GIVEN DUE TO PT JUST FINISHED WITH PHYSICAL THERAPIST.
--- NOTE | 2017-06-14 11:10 | NUR ---
06/14/17 RD INITIAL ASSESSMENT COMPLETED PLEASE REFER TO NUTRITION ASSESSMENT UNDER CARE ACTIVITY FOR ESTIMATED NUTRITIONAL NEEDS. 1. CONTINUE FULL LIQUID DIET, ADVANCE TOLERATED TO LOW SODIUM DIET 2. RD TO FOLLOW-UP 2-3 DAYS, HIGH RISK ANGELITA BARNETT RD
--- NOTE | 2017-06-14 11:15 | NUR ---
PER DR. Manuel HYDE. PT TO KEEP BRACE IN PLACE FOR LEFT LEG AT ALL TIMES.
--- NOTE | 2017-06-14 14:26 | NUR ---
FAXED INQUIRY TO [facility] [phone] PHONT [phone] FAXED INQUIRY TO [facility] [phone] PHONE [phone] SPOKE WITH [facility] [phone] LEFT MESSAGE . SPOKE WITH BERHANE CAMARENA. IF PATIENT DOESN'T GO TO SNF, CAN USE [facility] OR [facility], NO AUTH NEEDED. I SPOKE WITH GRACE AT [facility] AND TOLD HER THAT THE PATIENT MIGHT END UP GOING HOME SINCE [facility] STATES PATIENT MAY HAVE A COPAY DAILY. MARISA AT [facility] SAID SHE WOULD CALL ME BACK WITH THE SHARE OF COST. PER GRACE AT [facility], STILL USE [facility] AUTH IF PATIENT GOES HOME.
[2017-06-14 16:00] VITALS: BP 115/72
--- NOTE | 2017-06-14 16:29 | NUR ---
LATE ENTRY. SPOKE EARLIER WITH MARISA FROM [facility]. SHE INFORMED ME THAT THIS PATIENT AFTER 2 DAYS WOULD HAVE TO PAY A COPAY. SHE WAS GOING TO CALL ME BACK WITH THE AMOUNT. NO CALL BACK.
--- NOTE | 2017-06-14 16:33 | NUR ---
CALLED THE PATIENT'S DAUGHTER, RASHARD AND INFORMED HER THAT THE PATIENT MAY HAVE A COPAY IF SHE GOES TO A SNF. SHE SAID SHE COULD NOT AFFORD A CO PAY AND IS WILLING TO TAKE THE PATIENT HOME. SHE DID REQUEST A HOSPITAL BED FOR THIS PATIENT IS SHE GOES HOME. THE PATIENT LIVE WITH THE DAUGHTER AND SON IN [place]. I INFORMED NICK EGAN THAT IF THE PATIENT GOES HOME, FAMILY REQUEST HOSPITAL BED. I CALLED MATTHEW CAMARENA FROM [facility] AND SHE SAID IF THE PATIENT GOES HOME ON THE WEEKEND, CALL [facility] FOR THE BED AND SEND THE ORDER.
--- NOTE | 2017-06-14 17:33 | NUR ---
RECEIVED A CALL FROM MORGAN FROM [facility]. SHE SAID THEY ARE TRYING TO CONFIRM INSURANCE TO WHETHER THE FAMILY WILL HAVE A CO PAY. SHE WILL CALL THE FLOOR WHEN SHE KNOW. PHONE FOR [facility] IS [phone].
--- NOTE | 2017-06-14 19:15 | NUR ---
PT KEPT CLEAN, DRY AND COMFORTABLE, NEEDS ATTENDED. WILL ENDORSE PT TO NEXT SHIFT. PT ON STABLE CONDITION. FOR CONTINUITY OF CARE.
--- NOTE | 2017-06-14 19:30 | NUR ---
RECEIVED REPORT FROM AM NURSE. PT RESTING IN BED, AOX4, ABLE TO VERBALIZE NEEDS. PT DENIES CHEST PAIN, SOB OR S/S OF ACUTE DISTRESS. PT C/O LEFT HIP PAIN. SEE PAIN ASSESSMENT. WILL MEDICATE ORDERED. DRESSING TO LEFT HIP CLEAN DRY AND INTACT. LLE BRACE NOTED. IV ACCESS ASYMPTOMATIC, PATENT AND INTACT. IVF INFUSING WELL. DISCUSSED AND REVIEWED PLAN OF CARE WITH PT. PT VERBALIZED UNDERSTANDING. ALL NEEDS MET. SAFETY MEASURES ENSURED. CALL LIGHT WITHIN REACH. WILL CONTINUE TO MONITOR.
[2017-06-14 20:00] VITALS: BP 126/69
[2017-06-14] MEDS: LORazepam 2 MG/ML VIAL IVP PRN (21:38)
--- NOTE | 2017-06-14 21:38 | NUR ---
TEMP 99.9, COOLING MEASURES ENSURED. PT C/O PAIN. SEE PAIN ASSESSMENT. ADMINISTERED NORCO PO PRN FOR PAIN AND TEMP. ADMINISTERED REMAINING DUE MED WITH EDUCATION. PT VERBALIZED UNDERSTANDING, TOLERATED WELL. ALL NEEDS MET. SAFETY MEASURES ENSURED. CALL LIGHT WITHIN REACH. WILL CONTINUE TO MONITOR.
--- NOTE | 2017-06-14 23:30 | NUR ---
ASSISTED PT TO TURN AND REPOSITIONED, OFFLOADED PRESSURE AREAS. PT TOLERATED WELL. IVF INFUSING WELL. ALL NEEDS MET. SAFETY MEASURES ENSURED. CALL LIGHT WITHIN REACH. WILL CONTINUE TO MONITOR.
[2017-06-15] VITALS: BP 127/67
[2017-06-15] MEDS: HYDROcodone/APAP 5/325 MG 1 TAB TAB PO PRN ×4 (02:57→19:43)
--- NOTE | 2017-06-15 02:57 | NUR ---
PT C/O PAIN. SEE PAIN ASSESSMENT. ADMINISTERED PAIN MED ORDERED. ASSISTED PT TO TURN AND REPOSITION, OFFLOADED PRESSURE AREAS. PT TOLERATED WELL. ALL NEEDS MET. SAFETY MEASURES ENSURED. CALL LIGHT WITHIN REACH. WILL CONTINUE TO MONITOR.
--- NOTE | 2017-06-15 04:45 | NUR ---
PT SLEEPING COMFORTABLY, NO S/S OF ACUTE DISTRESS. ALL NEEDS MET. IVF INFUSING WELL. SAFETY MEASURES ENSURED. CALL LIGHT WITHIN REACH. WILL CONTINUE TO MONITOR.
[2017-06-15 06:59] LABS: ANION GAP 9.5 (8-16); CARBON DIOXIDE 27.4 mmol/L (21-32); CREATININE 0.5 mg/dL (0.6-1.3); POTASSIUM 3.9 mmol/L (3.5-5.1)
[2017-06-15 07:01] LABS: BASOPHILS % (AUTO) 0.5 % (0.0-2.0); EOSINOPHILS # (AUTO) 0.3 K/uL (0-0.4); EOSINOPHILS % (AUTO) 4.9 % (0.0-4.0); HEMATOCRIT 28.1 % (36-48); HEMOGLOBIN 9.1 g/dL (12.0-16.0); LYMPHOCYTES # (AUTO) 1.9 K/uL (2.5-16.5); LYMPHOCYTES % (AUTO) 26.3 % (20.5-51.1); MEAN CORPUSCULAR HEMOGLOBIN 28 pg (27-31); MEAN CORPUSCULAR HGB CONC 33 g/dL (33-37); MEAN CORPUSCULAR VOLUME 87 fL (80-94); MONOCYTES # (AUTO) 0.6 K/uL (0.8-1.0); MONOCYTES % (AUTO) 8.4 % (1.7-9.3); NEUTROPHILS # (AUTO) 4.3 K/uL (1.8-7.7); NEUTROPHILS % (AUTO) 59.9 % (42.2-75.2); PLATELET COUNT (AUTO) 499 K/uL (140-450); RED BLOOD CELL COUNT(AUTO) 3.22 MIL/uL (4.20-5.40); RED CELL DISTRIBUTION WIDTH 14.7 % (11.6-13.7); WHITE BLOOD COUNT (AUTO) 7.1 K/uL (4.8-10.8)
--- NOTE | 2017-06-15 07:30 | NUR ---
ENDORSED PLAN OF CARE TO AM NURSE. CONDITION STABLE.
--- NOTE | 2017-06-15 07:31 | NUR ---
REPORT RECEIVED FROM ROAD ADVISOR, PT AWAKE ALERT OX4, RESP EVEN UNLABORED ON ROOM AIR, SKIN WARM DRY COLOR WNL, PT DENIES PAIN OR DISCOMFORT, PT IN BRACE, GOOD CMS DISTALLY, RENDON DRAINING WELL, PLAN OF CARE DISCUSSED, PT VERBALIZED FULL UNDERSTANDING, CALL HENAO WITHIN REACH, SIDE RAIL UPX2, BED LOCKED IN LOW POSITION, WILL CONTINUE TO MONITOR.
[2017-06-15] MEDS: LACTOBACILLUS RHAMNOSUS GG 1 EACH CAP PO SCH ×2 (08:26→20:59)
[2017-06-15] MEDS: FLUoxetine 10 MG CAP PO SCH (08:26)
[2017-06-15] MEDS: METHOCARBAMOL 500 MG TAB PO SCH ×3 (08:26→16:42)
[2017-06-15] MEDS: LISINOPRIL 20 MG TAB PO SCH (08:27)
[2017-06-15] MEDS: QUEtiapine FUMARATE 25 MG TAB PO SCH (08:27)
[2017-06-15] MEDS: CELECOXIB 100 MG CAP PO SCH (08:27)
[2017-06-15 08:33] VITALS: BP 122/72
[2017-06-15] MEDS: LORazepam 2 MG/ML VIAL IVP PRN ×2 (12:07→19:43)
[2017-06-15] MEDS: DEXT 5% / NACL 0.45% 1,000 ML IV SCH ×2 (12:07→19:51)
--- NOTE | 2017-06-15 13:00 | NUR ---
+ BM, PERICARE DONE, LEFT HIP DRESSING CHANGED, SML AMT OF SEROUS DRAINAGE NOTED, SURGICAL WOUND WELL APPROXIMATED WITH FILI, NO REDNESS OR BLEEDING NOTED, WOUND COVERED WITH 4X4 AND CLEAR DRESSING, HIP BRACE PADDED TO PROTECT SKIN, BRACE LOOSENED WHEN LYING DOWN BY PHYSICAL THERAPY, PT AWARE TO TIGHTEN WHEN GETTING UP OR MOVING, FAMILY TO BEDSIDE, WILL CONTINUE TO MONTIOR.
--- NOTE | 2017-06-15 13:38 | NUR ---
CALLED [facility] AND SPOKE TO JOSEPH, I FAXED THE ORDER TO . SHE SAID SHE WILL CALL ONCE THEY REVIEW THE PAPERS.
--- NOTE | 2017-06-15 14:20 | NUR ---
PT'S DAUGHTER AND FAMILY AT BEDSIDE, DAUGHTER STATES SHE CAN'T TAKE PT HOME TODAY BECAUSE THE HOUSE IS NOT READY WITH HOSPITAL BED, AND SHE DOES NOT HAVE APPROPRIATE VEHICLE TO TAKE PT HOME TODAY, DAUGHTER STATES SHE STILL NEEDS TO GET THE HOSPITAL BED READY AT HOME AND ARRANGE MEDICAL TRANSPORT BEFORE SHE CAN TAKE PT. DAUGHTER ALSO STATES SHE HAS AN APPOINTMENT WITH PHYSICAL THERAPIST TO MEET AT PT'S BEDSIDE ON SATURDAY AT 0800 TO LEARN HOW TO TAKE CARE OF PATIENT AT HOME, DAUGHTER STATES SHE SHOULD BE READY TO TAKE PT HOME BY Saturday, DAUGHTER STATES SHE WILL WORK ON ARRANGING TRANSPORTATION FOR Saturday. CHARGE NURSE NICK MADE AWARE.
[2017-06-15 16:00] VITALS: BP 96/66
--- NOTE | 2017-06-15 16:20 | NUR ---
PT SLEEPING QUIETLY IN NAD RESP EVEN UNLABORED, SKIN COLOR WNL, CALL HENAO WITHIN REACH, SIDE RAILS UP, BED LOCKED IN LOW POSITION, WILL CONTINUE TO MONITOR.
--- NOTE | 2017-06-15 17:15 | NUR ---
REPORT GIVEN TO MAGUE, CARE TURNED OVER AT THIS TIME.
--- NOTE | 2017-06-15 17:16 | NUR ---
RECEIVED HANDOFF REPORT FROM [facility]. PATIENT A&OX4. PATIENT DENIES PAIN. IV SITE PATENT AND INTACT. DRESSING DRY AND INTACT. NO SIGNS OR SYMPTOMS OF ACUTE DISTRESS NOTED. CALL LIGHT WITHIN REACH. WILL CONTINUE TO MONITOR.
--- NOTE | 2017-06-15 19:14 | NUR ---
ENDORSED PLAN OF CARE TO PM RN. PATIENT IN STABLE CONDITION. SAFETY MEASURES ENSURED.
--- NOTE | 2017-06-15 19:29 | NUR ---
RECEIVED PT FROM DAY NURSE, PT IS IN STABLE CONDITION. PT AAOX4, PT IS IS ON RA, OT HAS IV TO L FA 22 G, INFUSING WELL, PT HAS BRACE ON LEFT HIP, S/P SURGERY. RESPIRATIONS ARE EVEN AND UNLABORED. BOWEL SOUNDS PRESENT. INITIAL ASSESSMENT COMPLETED. PLAN OF CARE DISCUSSED WITH PT. PT VERBALIZED UNDERSTANDING. ALL SAFETY PRECAUTIONS MET, CALL LIGHT WITHIN REACH WILL CONTINUE TO MONITOR.
[2017-06-16] VITALS: BP 118/60
--- NOTE | 2017-06-16 01:05 | NUR ---
PT RESTING COMFORTABLY IN BED, NO S/S OF DISTRESS NOTED. CALL LIGHT WITHIN REACH, ALL SAFETY PRECAUTIONS MET, WILL CONTINUE TO MONITOR.
[2017-06-16] MEDS: DEXT 5% / NACL 0.45% 1,000 ML IV SCH ×2 (04:34→14:11)
[2017-06-16] MEDS: HYDROcodone/APAP 5/325 MG 1 TAB TAB PO PRN ×5 (05:23→22:26)
[2017-06-16] MEDS: LORazepam 2 MG/ML VIAL IVP PRN ×2 (05:41→20:06)
[2017-06-16 07:05] LABS: BASOPHILS % (AUTO) 0.5 % (0.0-2.0); EOSINOPHILS # (AUTO) 0.3 K/uL (0-0.4); EOSINOPHILS % (AUTO) 4.8 % (0.0-4.0); HEMATOCRIT 28.7 % (36-48); HEMOGLOBIN 9.4 g/dL (12.0-16.0); LYMPHOCYTES # (AUTO) 1.8 K/uL (2.5-16.5); LYMPHOCYTES % (AUTO) 28.5 % (20.5-51.1); MEAN CORPUSCULAR HEMOGLOBIN 29 pg (27-31); MEAN CORPUSCULAR HGB CONC 33 g/dL (33-37); MEAN CORPUSCULAR VOLUME 87 fL (80-94); MONOCYTES # (AUTO) 0.5 K/uL (0.8-1.0); MONOCYTES % (AUTO) 7.9 % (1.7-9.3); NEUTROPHILS # (AUTO) 3.8 K/uL (1.8-7.7); NEUTROPHILS % (AUTO) 58.3 % (42.2-75.2); PLATELET COUNT (AUTO) 565 K/uL (140-450); RED BLOOD CELL COUNT(AUTO) 3.29 MIL/uL (4.20-5.40); RED CELL DISTRIBUTION WIDTH 14.3 % (11.6-13.7); WHITE BLOOD COUNT (AUTO) 6.4 K/uL (4.8-10.8)
[2017-06-16 07:15] LABS: ANION GAP 10.6 (8-16); CREATININE 0.5 mg/dL (0.6-1.3); POTASSIUM 3.6 mmol/L (3.5-5.1)
--- NOTE | 2017-06-16 07:19 | NUR ---
REPORT GIVEN TO DAY NURSE FOR CONTINUITY OF CARE, PT IN STABLE CONDITION, NO S/S OF DISTRESS NOTED.
--- NOTE | 2017-06-16 07:20 | NUR ---
RECEIVED PATIENT AT BEDSIDE. PATIENT. AWAKE, ALERT AND ORIENTED. NO S/S OF DISTRESS NOTED. NO C/O PAIN AT THIS TIME. LEG BRACE IN PLACE ON THE LEFT LEG. WOUND DRESSING NOTED TO THE LEFT LEG. DRESSING CLEAN, DRY AND INTACT. RENDON CATHETER IN PLACE, DRAINING CLEAR YELLOW URINE. BED LOWERED WITH CALL LIGHT WITHIN REACH. WILL CONTINUE TO MONITOR
[2017-06-16 08:00] VITALS: BP 129/57
[2017-06-16] MEDS: FLUoxetine 10 MG CAP PO SCH (08:32)
[2017-06-16] MEDS: METHOCARBAMOL 500 MG TAB PO SCH ×3 (08:32→16:03)
[2017-06-16] MEDS: QUEtiapine FUMARATE 25 MG TAB PO SCH (08:32)
[2017-06-16] MEDS: CELECOXIB 100 MG CAP PO SCH (08:33)
[2017-06-16] MEDS: LACTOBACILLUS RHAMNOSUS GG 1 EACH CAP PO SCH ×2 (08:33→20:06)
[2017-06-16] MEDS: LISINOPRIL 20 MG TAB PO SCH (08:34)
--- NOTE | 2017-06-16 09:24 | NUR ---
PATIENT HAD A BM. PATIENT GIVEN PERINEAL CARE. WOUND DRESSING TO THE LEFT HIP NOTED TO HAVE SEROSANGUINEOUS DRAINAGE. WOUND DRESSING CHANGED. FILI INTACT, NO S/S OF INFECTION NOTED. PATIENT REPORTS THAT THE WOUND HAS NOT BEEN DRAINING SINCE TODAY. PAGED DR HYDE TO INFORM HIM ABOUT THE STATUS OF THE WOUND. WAITING FOR CALL BACK. WOUND CLEANSED WITH NS AND PAT DRIED WITH GAUZE. WOUND COVERED WITH GAUZE AND TRANSPARENT DRESSING.
--- NOTE | 2017-06-16 11:31 | NUR ---
CALLED [facility] TO F/U ON THE STATUS OF THE BED ORDERED PER PT'S DAUGHTER'S REQUEST. PER KINDRA THE ORDER IS STILL IN PROCESS
--- NOTE | 2017-06-16 11:49 | NUR ---
PT ASLEEP, NO S/S OF DISTRESS.
[2017-06-16 17:14] VITALS: BP 112/63
--- NOTE | 2017-06-16 19:27 | NUR ---
PATIENT REPORT GIVEN AT BEDSIDE. PATIENT ENDORSES IN STABLE CONDITION
--- NOTE | 2017-06-16 19:28 | NUR ---
REPORT RECEIVED FROM DAY NURSE, PT IN STABLE CONDITION, PT IS AAOX4, RESPIRATIONS ARE EVEN AND UNLABORED. PT IS ON RA. BOWEL SOUNDS PRESENT. PT S/P LEFT HIP ORIF, DRESSING IN PLACE, DRY AND INTACT. BOWEL SOUNDS PRESENT. IV TO R FA 22G, INFUSING WELL. INITIAL ASSESSMENT COMPLETED, PLAN OF CARE DISCUSSED WITH PT, PT VERBALIZED UNDERSTANDING. ALL SAFETY PRECAUTIONS MET, CALL LIGHT WITHIN REACH, WILL CONTINUE TO MONITOR.
[2017-06-17] VITALS: BP 135/84
--- NOTE | 2017-06-17 | NUR ---
PTS VITALS STABLE, PT RESTING IN BED NO S/S OF DISTRESS NOTED
--- NOTE | 2017-06-17 01:00 | NUR ---
PTS DRESSING CHANGED, SMALL AMOUNT OF SEROSANGUINEOUS DRAINAGE NOTED WITH NO ODOR. PICTURE TAKEN AND MEASUREMENTS DONE.
[2017-06-17] MEDS: DEXT 5% / NACL 0.45% 1,000 ML IV SCH ×2 (01:42→11:15)
[2017-06-17] MEDS: ACETAMINOPHEN 325 MG TAB PO PRN ×2 (03:23→09:08)
[2017-06-17 05:58] LABS: BASOPHILS # (AUTO) 0.1 K/uL (0.00-0.22); BASOPHILS % (AUTO) 0.6 % (0.0-2.0); EOSINOPHILS # (AUTO) 0.4 K/uL (0-0.4); EOSINOPHILS % (AUTO) 4.2 % (0.0-4.0); HEMATOCRIT 28.1 % (36-48); HEMOGLOBIN 9.2 g/dL (12.0-16.0); LYMPHOCYTES # (AUTO) 2.3 K/uL (2.5-16.5); LYMPHOCYTES % (AUTO) 26.2 % (20.5-51.1); MEAN CORPUSCULAR HEMOGLOBIN 28 pg (27-31); MEAN CORPUSCULAR HGB CONC 33 g/dL (33-37); MEAN CORPUSCULAR VOLUME 87 fL (80-94); MONOCYTES # (AUTO) 0.7 K/uL (0.8-1.0); MONOCYTES % (AUTO) 7.8 % (1.7-9.3); NEUTROPHILS # (AUTO) 5.1 K/uL (1.8-7.7); NEUTROPHILS % (AUTO) 61.2 % (42.2-75.2); PLATELET COUNT (AUTO) 587 K/uL (140-450); RED BLOOD CELL COUNT(AUTO) 3.24 MIL/uL (4.20-5.40); RED CELL DISTRIBUTION WIDTH 14.4 % (11.6-13.7); WHITE BLOOD COUNT (AUTO) 8.6 K/uL (4.8-10.8)
[2017-06-17 06:23] LABS: ANION GAP 10.3 (8-16); CARBON DIOXIDE 28.2 mmol/L (21-32); CREATININE 0.6 mg/dL (0.6-1.3); POTASSIUM 3.5 mmol/L (3.5-5.1)
--- NOTE | 2017-06-17 07:06 | NUR ---
RENDON CARE GIVEN, ANG CARE PROVIDED, PT KEPT DRY. RENDON CATHETER IN TACT
--- NOTE | 2017-06-17 07:39 | NUR ---
GAVE REPORT TO DAY NURSE AT BEDSIDE FOR CONTINUITY OF CARE, PT IN STABLE CONDITION. NO S/S OF DISTRESS NOTED.
--- NOTE | 2017-06-17 07:40 | NUR ---
RECEIVED REPORT FROM [employer]PERVISOR NURSE AT BEDSIDE FOR CONTINUITY OF CARE. PT IS AWAKE AND ORIENTED. INTRODUCED SELF AND UPDATED BOARD. DISCUSSED PLAN FOR TODAY AND AWAITING HOME BED DELIVERY WHEN PT IS D/C'D. PT AWARE. STATED HER DAUGHTER WILL BE ARRIVING TODAY. PT HAS NO COMPLAINTS AT THIS TIME. WILL CONTINUE TO MONITOR.
[2017-06-17 08:00] VITALS: BP 126/82
[2017-06-17] MEDS: CELECOXIB 100 MG CAP PO SCH (09:00)
[2017-06-17] MEDS: LACTOBACILLUS RHAMNOSUS GG 1 EACH CAP PO SCH (09:00)
[2017-06-17] MEDS: LISINOPRIL 20 MG TAB PO SCH (09:01)
[2017-06-17] MEDS: FLUoxetine 10 MG CAP PO SCH (09:01)
[2017-06-17] MEDS: QUEtiapine FUMARATE 25 MG TAB PO SCH (09:01)
[2017-06-17] MEDS: METHOCARBAMOL 500 MG TAB PO SCH ×2 (09:01→12:22)
--- NOTE | 2017-06-17 09:08 | NUR ---
ADMINISTERED SCHEDULED MEDS. PT STATED PAIN ON LEFT HIP 11/23. ADMINISTERED TYLENOL FOR MILD PAIN. PT TOLERATED MEDS WELL. NO OTHER COMPLAINTS AT THIS TIME. WILL CONTINUE TO MONITOR.
--- NOTE | 2017-06-17 09:52 | NUR ---
SPOKE WITH BERHANE CAMARENA FROM [facility]. I TOLD HER THAT THE PATIENT WILL BE GOING HOME AND [facility] WAS CALLED FOR THE HOSPITAL LIKE SHE TOLD ME ON SATURDAY. BERHANE CALLED ME BACK AND SAID SHE WILL CANCEL [facility] AND FOR ME TO [facility] PHONE [phone]. FAX [phone]. I CALLED HOME CARE AND SPOKE WITH ISIDORO AND FAXED HER THE ORDER, THE FACE SHEET AND H&P TO HER.
--- NOTE | 2017-06-17 09:58 | NUR ---
CALLED [facility] AND SPOKE TO RADHA TO F/U WITH BED DELIVERY. RADHA STATED THAT PATIENT CANCELLED ORDER FOR BED AND THAT FAX ORDER SENT ON 06/15/17 WAS NOT PROCESSED. SPOKE TO PT AND DAUGHTER AND THEY EXPLAINED THAT THEY DID NOT CANCEL ORDER. FAXED ORDER TO KINDRA AT . WILL F/U WITH STATUS OF DELIVERY.
--- NOTE | 2017-06-17 10:17 | NUR ---
[facility]ED [facility] AND SPOKE WITH BRIJESH. SHE SAID TO FAX INQUIRY AND ORDER TO [phone]. BERHANE FROM [facility] CALLED AND SAID TO TRY [facility], SINCE THEY SAW THIS PATIENT BEFORE.
--- NOTE | 2017-06-17 10:59 | NUR ---
CHECKED ON PT IN ROOM. DAUGHTER AT BEDSIDE. UPDATED REGARDING HOME HEALTH CHANGE IN COMPANY. PT VERBALIZED UNDERSTANDING. PT IS SITTING UP IN CHAIR RIGHT NOW. P/T IS NOW WITH PT IN ROOM.
--- NOTE | 2017-06-17 11:17 | NUR ---
06/17/17 RD FOLLOW-UP ASSESSMENT COMPLETED PLEASE REFER TO NUTRITION ASSESSMENT UNDER CARE ACTIVITY FOR ESTIMATED NUTRITIONAL NEEDS. 1. CONTINUE REGULAR DIET 2. RD TO FOLLOW-UP 3-5 DAYS, MODERATE RISK ANGELITA BARNETT RD
--- NOTE | 2017-06-17 11:50 | NUR ---
FAXED CONCURRENT REVIEW TO [facility] [phone] PHONE GRACE [phone] I SPOKE WITH GRACE AND INFORMED HER PATIENT TO GO HOME TODAY WITH HOSPITAL BED AND HOME HEALTH, SHE SAID FOR TRANSPORT WE CAN USE [facility] AUTH FOR [facility] [id number]. FAXED ORDER, FACE SHEET AND H&P TO BERHANE CAMARENA FROM [employer] [facility] [phone]
--- NOTE | 2017-06-17 12:19 | NUR ---
RECEIVED A CALL FROM HUSAM FROM [facility] PHONE [phone]. THEY HAVE ACCEPTED THE PATIENT AND WILL START ON SATURDAY. I CALL BERHANE CAMARENA AT [facility] AND INFORMED HER FOR HER TO GIVE THE AUTH TO [facility].
--- NOTE | 2017-06-17 14:23 | NUR ---
RECEIVED A CALL FROM MATTHEW CAMARENA. AUTH FOR HOSPITAL BED IS [id number]. AUTH FOR FOR PT IS [id number]. MATTHEW SAID SHE INFORMED FOR BOTH HOSPITAL BED AND HOME HEALTH.
--- NOTE | 2017-06-17 14:30 | NUR ---
PT D/C'D TO GO HOME WITH HOME HEALTH. D/C RENDON CATHETER. 500ML OF URINE NOTED. RENDON CATHETER TIP INTACT. REMOVED IV FROM RIGHT FA 22G. IV CATHETER TIP INTACT. APPLIED PRESSURE TO SITE AND DRESSING. NO BLEEDING NOTED. PT'S D/C INSTRUCTIONS GIVEN AND FORM SIGNED BY DAUGHTER. DAUGHTER TOOK ALL OF PT'S PERSONAL BELONGINGS. ID BANDS REMOVED. PT CHANGED IN TRANSFER GOWN AND LEFT WITH [facility] TRANSPORTER VIA GURNEY. PT LEFT IN STABLE CONDITION.
--- NOTE | 2017-06-17 15:44 | NUR ---
PHYSICAL THERAPY CO-SIGN The Physical Therapy Progress Notes documented by Reporter have been reviewed. I CONCUR W/DRY KILN FEEDER NOTE Reviewed/Co-Signed by: Beatrice Brewster PT Documentation Done by: MANDIE BAILEY DRY KILN FEEDER Addendum: 06/17/17 at 1544 by Beatrice Brewster PT Amended: Links added.
== END 2017-06-17 14:30 | disposition home health service (06) | DRG 481 ==
LOC: MED 09:48 → MTU 12:10
PROVIDERS: ADMIT Preventive Medicine Preventive Medicine/Occupational Environmental Medicine; ATTEND Preventive Medicine Preventive Medicine/Occupational Environmental Medicine
PROC: 0SSB0ZZ Reposition Left Hip Joint, Open Approach (ICD-10-PCS; principal; 2017-06-11 08:30)
DX: T84.021A Dislocation of internal left hip prosthesis, initial encounter (principal); R65.10 Systemic inflammatory response syndrome (SIRS) of non-infectious origin without acute organ dysfunction; I10 Essential (primary) hypertension; D72.829 Elevated white blood cell count, unspecified; E87.6 Hypokalemia; Y79.2 Prosthetic and other implants, materials and accessory orthopedic devices associated with adverse incidents; D75.89 Other specified diseases of blood and blood-forming organs; R73.9 Hyperglycemia, unspecified; Z96.642 Presence of left artificial hip joint; R00.0 Tachycardia, unspecified; D64.9 Anemia, unspecified; E66.9 Obesity, unspecified; R53.81 Other malaise; R19.7 Diarrhea, unspecified; F99 Mental disorder, not otherwise specified; K21.9 Gastro-esophageal reflux disease without esophagitis; W18.30XA Fall on same level, unspecified, initial encounter; Z88.6 Allergy status to analgesic agent; Z88.2 Allergy status to sulfonamides; Z68.30 Body mass index [BMI] 30.0-30.9, adult
CPT/HCPCS: 36415; 71010; 72170; 73502; 80048; 80053; 84484; 85025; 85610; 85730; 87045; 87070; 87081; 93005; 96374; 96375; 97110; 97116; 97140; 97530; 99285; J0690; J1170; J2060; J2250; J2704; J3010; J3490; J7042; Q0092